=== PATIENT | female | born 1965 | race Caucasian/White ===

== ENCOUNTER 2018-04-15 14:56 | Emergency (ER) | payer SELFPAY ==
[2018-04-15 15:37] VITALS: TEMP 102
[2018-04-15] MEDS ORDERED: SODIUM CHLORIDE 0.9% (FLUSH) 10 ML SYG IV PRN (15:37)
[2018-04-15] MEDS ORDERED: KETOROLAC TROMETHAMINE INJ 30 MG/ML VIAL IV ONE (15:37)
[2018-04-15] MEDS ORDERED: SODIUM CHLORIDE 0.9% 1000ML 1,000 ML IVS PRN (15:37)
[2018-04-15] MEDS ORDERED: MORPHINE SULFATE INJ 10 MG/ML VIAL IV ONE (15:37)
[2018-04-15] MEDS ORDERED: ONDANSETRON INJ 4 MG/2 ML VIAL IV ONE (15:37)
[2018-04-15] MEDS ORDERED: PHENAZOPYRIDINE HCL 200 MG TAB PO ONE (15:38)
--- NOTE | 2018-04-15 15:41 | ED.PDOC ---
History of Present Illness - General Chief Complaint: Abdominal Pain Stated Complaint: abdominal pain; fever Time Seen by Provider: 04/15/18 15:37 Source: patient Exam Limitations: no limitations - History of Present Illness Initial Comments: PT REPORTS SYMPTOMS OF DYSURIA AND FREQUENCY 3 DAYS AGO. PT REPORTS TRYING TO SELF TREAT WITH AZO AT HOME BUT STATES THAT SYMPOTMS HAS WORSENED TO NOW INCLUDE FEVER, CHILLS, NAUSEA, AND RIGHT FLANK PAIN. Timing/Duration: getting worse Quality: aching Onset Location: RLQ, right flank Radiation: RLQ Associated Symptoms: dysuria, fever/chills, nausea/vomiting, urinary frequency Allergies/Adverse Reactions: Allergies Penicillins Allergy (Verified 07/01/16 08:51) Other Swells tongue Home Medications: Ambulatory Orders glyBURIDE [Diabeta] 5 mg PO DAILY 07/25/15 metFORMIN HCL [Glucophage] 1,000 mg PO DAILY 07/25/15 Fluticasone/Salmeterol 250/50 [Advair Diskus] 1 puff INH DAILY 07/01/16 Gabapentin [Neurontin] 300 mg PO TID #30 cap 07/01/16 Insulin Aspart [Novolog Flexpen] 0 unit SC QID PRN 07/01/16 Insulin Detemir [Levemir] 50 unit SUBCU BEDTIME 07/01/16 Lisinopril 5 mg PO DAILY 07/01/16 Acetaminophen W/ Codeine [Tylenol W/ CODEINE #3] 1 ea PO Q4HR PRN #24 04/15/18 Cefuroxime Axetil [Ceftin] 500 mg PO Q12H #20 tablet 04/15/18 Ibuprofen 800 mg PO Q8HR PRN #30 tab 04/15/18 Promethazine Tab [Phenergan Tablet] 25 mg PO Q6H PRN #15 tab 04/15/18 Review of Systems - Review of Systems Constitutional: States: chills, fever EENTM: Denies: nose congestion, throat pain Respiratory: Denies: cough, short of breath Cardiology: Denies: chest pain, palpitations, syncope Gastrointestinal/Abdominal: States: constipation, nausea. Denies: diarrhea, vomiting Genitourinary: States: dysuria, frequency, hematuria Musculoskeletal: Denies: joint pain, joint swelling Skin: Denies: dryness, lesions Neurological: Denies: headache, numbness, paresthesia Endocrine: States: no symptoms reported Hematologic/Lymphatic: States: no symptoms reported Past Medical History (General) - Patient Medical History Hx Stroke: No Hx Asthma: Yes Hx of COPD: Yes Hx Cardiac Disorders: No Hx Congestive Heart Failure: No Hx Hypertension: Yes Hx Diabetes: Yes - IDDM Surgical History: appendectomy - Vaccination History Hx Tetanus, Diphtheria Vaccination: Yes Hx Influenza Vaccination: No Hx Pneumococcal Vaccination: No - Social History Hx Tobacco Use: Yes - Quit 2006 - Female History Patient : No Family Medical History - Family History Mother Family History: No Known Living Status: Still Living Hx Family Diabetes: Yes Physical Exam - Physical Exam General Appearance: Alert, Obvious distress, Obese, Well Hydrated Eyes, Ears, Nose, Throat Exam: normal ENT inspection Cardiovascular/Respiratory: regular rate, rhythm, no M/R/G, normal breath sounds , no respiratory distress Gastrointestinal/Abdominal: soft, tenderness - RLQ Back Exam: CVA tenderness (R) Extremity: non-tender, normal inspection, no pedal edema Neurologic: alert, normal mood/affect, oriented x 3 Skin Exam: normal color, warm/dry Progress - Progress Progress: 04/15/18 17:39 PT REPORTS SIGNIFICANT IMPROVEMENT IN SYMPTOMS ON RE-EVALUATION. LABS AND CT FINDINGS DISCUSSED. - Results/Orders Results/Orders: Laboratory Tests 04/15/18 04/15/18 04/15/18 15:42 15:42 Unknown WBC 9.4 RBC 4.68 Hgb 14.0 Hct 41.1 MCV 87.8 MCH 29.9 MCHC 34.0 RDW 13.4 Plt Count 192 MPV 8.9 Absolute Neuts (auto) 6.50 Absolute Lymphs (auto) 1.40 Absolute Monos (auto) 1.30 H Absolute Eos (auto) 0.20 Absolute Basos (auto) 0.10 Neutrophils % 68.8 Lymphocytes % 14.7 L Monocytes % 13.7 H Eosinophils % 2.2 Basophils % 0.6 Sodium 135 Potassium 3.9 Chloride 98 L Carbon Dioxide 30 Anion Gap 10.9 L BUN 8 Creatinine 0.56 L BUN/Creatinine Ratio 14.3 Random Glucose 349 H Serum Osmolality 282.3 Calcium 9.2 Urine Color Yellow Urine Appearance Sl cloudy Urine pH 6.5 Ur Specific [place] 1.010 Urine Protein Negative Urine Glucose (UA) 500 H Urine Ketones Negative Urine Blood Large H Urine Nitrite Negative Urine Bilirubin Negative Urine Urobilinogen 0.2 Ur Leukocyte Esterase Small H Urine RBC >50 H Urine WBC 5-10 H Ur Epithelial Cells 1-3 Amorphous Sediment 1+ Urine Bacteria 1+ Departure - Departure Clinical Impression: Pyelonephritis, Nausea, Fever Time of Disposition: 17:42 Disposition: Discharge to Home or Self Care Condition: Good Departure Forms: ED Discharge - Pt. Copy, Patient Portal Self Enrollment Instructions: DI for Kidney Infection Referrals: [facility] [Provider Group] - 1-5 Days Prescriptions: Acetaminophen W/ Codeine [Tylenol W/ CODEINE #3] 1 ea PO Q4HR PRN #24 PRN Reason: Pain Ibuprofen 800 mg PO Q8HR PRN #30 tab PRN Reason: Pain Cefuroxime Axetil [Ceftin] 500 mg PO Q12H #20 tablet Promethazine Tab [Phenergan Tablet] 25 mg PO Q6H PRN #15 tab PRN Reason: Nausea/Vomiting Home Medications: Ambulatory Orders glyBURIDE [Diabeta] 5 mg PO DAILY 07/25/15 metFORMIN HCL [Glucophage] 1,000 mg PO DAILY 07/25/15 Fluticasone/Salmeterol 250/50 [Advair Diskus] 1 puff INH DAILY 07/01/16 Gabapentin [Neurontin] 300 mg PO TID #30 cap 07/01/16 Insulin Aspart [Novolog Flexpen] 0 unit SC QID PRN 07/01/16 Insulin Detemir [Levemir] 50 unit SUBCU BEDTIME 07/01/16 Lisinopril 5 mg PO DAILY 07/01/16 Acetaminophen W/ Codeine [Tylenol W/ CODEINE #3] 1 ea PO Q4HR PRN #24 04/15/18 Cefuroxime Axetil [Ceftin] 500 mg PO Q12H #20 tablet 04/15/18 Ibuprofen 800 mg PO Q8HR PRN #30 tab 04/15/18 Promethazine Tab [Phenergan Tablet] 25 mg PO Q6H PRN #15 tab 04/15/18
[2018-04-15] MEDS ORDERED: cefTRIAXone SODIUM 1 GM in SODIUM CHL 0.9% 50ML MIN-BAG+ 50 ML IVPB ONE (16:17)
[2018-04-15] MEDS ORDERED: SODIUM CHL 0.9% 50ML MIN-BAG+ 50 ML IVPB ONE (16:22)
[2018-04-15] MEDS ORDERED: cefTRIAXone SODIUM 1 GM VIAL ONE (16:22)
[2018-04-15] MEDS ORDERED: SODIUM CHLORIDE 0.9% 1000ML 1,000 ML IVS ONE (16:27)
--- NOTE | 2018-04-15 16:50 | CT ---
EXAM DESCRIPTION: Abdoment/Pelvis w/o Contrast CLINICAL HISTORY: 52 years Female, RIGHT FLANK PAIN, HEMATURIA COMPARISON: None available. TECHNIQUE: Contiguous 3 mm axial images were obtained from the lung bases to the level of the proximal femora without the administration of intravenous or oral contrast. Sagittal and coronal reconstructions were reviewed. FINDINGS: Limited evaluation of the solid organs due to the lack of intravenous contrast. THORAX: The imaged lower thorax demonstrates no gross abnormality. LIVER: The liver demonstrates normal size and density with no intrahepatic biliary ductal dilatation. GALLBLADDER: Grossly unremarkable. PANCREAS: Appears normal with no cystic or solid lesions. SPLEEN: Normal ADRENAL GLANDS: Normal with no nodules or masses. KIDNEYS: Punctate 3.3 mm calculus is noted in the upper pole of the right kidney. No hydronephrosis or perinephric fluid collections bilaterally. The visualized ureters appear grossly unremarkable. STOMACH: The stomach is well-distended with no gross abnormality. SMALL BOWEL: The small bowel loops demonstrate variable degrees of distention with no abnormal dilatation or other signs to suggest bowel obstruction. LARGE BOWEL: Multiple diverticula are noted throughout the colon. No evidence of acute appendicitis. The appendix is not definitely seen, however no secondary signs to suggest acute appendicitis. No evidence of free intraperitoneal air or fluid. RETROPERITONEUM: The abdominal aorta is nonaneurysmal with no significant atherosclerosis. The inferior vena cava is normal in size and caliber. No abnormally enlarged retroperitoneal lymph nodes are identified. URINARY BLADDER:The urinary bladder is well-distended with no gross abnormality. The uterus and adnexa appear normal. ADDITIONAL FINDINGS: Fat-containing bilateral inguinal hernias are noted. BONES: Mild degenerative changes are identified in the visualized bones.No evidence of osteophytic or osteoblastic lesions. IMPRESSION: Punctate nonobstructive calculus is noted in the right kidney. No hydronephrosis or obstructive calculus is identified bilaterally. Fat-containing bilateral inguinal hernias are noted. Colonic diverticulosis. This exam was performed according to our departmental dose-optimization program, which includes automated exposure control, adjustment of the mA and/or kV according to patient size and/or use of iterative reconstruction technique. Electronically signed by: Blanka Wall MD 04/15/2018 4:48 PM CDT
[2018-04-15 18:59] VITALS: BP 112/68; O2SAT 94
== END 2018-04-15 16:10 | disposition home or self-care (01) ==
LOC: ER 14:56
DX: N12 Tubulo-interstitial nephritis, not specified as acute or chronic (principal); R50.81 Fever presenting with conditions classified elsewhere; R11.2 Nausea with vomiting, unspecified; J44.9 Chronic obstructive pulmonary disease, unspecified; J45.909 Unspecified asthma, uncomplicated; E11.9 Type 2 diabetes mellitus without complications; I10 Essential (primary) hypertension; Z87.891 Personal history of nicotine dependence; Z79.4 Long term (current) use of insulin
CPT/HCPCS: 36415; 74176; 80048; 81001; 85025; 87086; J0696; J1885; J2270; J2405; J7030; J7050

== ENCOUNTER 2018-05-08 03:38 | Emergency (ER) | payer SELFPAY ==
[2018-05-08 03:55] VITALS: TEMP 97.6
[2018-05-08] MEDS ORDERED: LIDOCAINE 2 % GEL 5 ML TUBE TOP ONE (04:01)
--- NOTE | 2018-05-08 04:19 | ED.PDOC ---
History of Present Illness - General Chief Complaint: Dental/Mouth Stated Complaint: toothache Time Seen by Provider: 05/08/18 03:57 Source: patient Exam Limitations: no limitations - History of Present Illness Initial Comments: Shaye Morales 53 y/o female stated that for the last 2 days had been having toothache right lower teeth.Unable to get dental appointment today.No fever ,no chills,no drooling ,painful to chew right mandibular area. Timing/Duration: other - see hpi Severity: moderate EENT Location: dental Prearrival Treatment: no prearrival treatment Presenting Symptoms: Dental pain Improving Factors: rest - from chewing Worsening Factors: eating Associated Symptoms: denies symptoms Allergies/Adverse Reactions: Allergies Penicillins Allergy (Verified 07/01/16 08:51) Other Swells tongue Home Medications: Ambulatory Orders glyBURIDE [Diabeta] 5 mg PO DAILY 07/25/15 metFORMIN HCL [Glucophage] 1,000 mg PO DAILY 07/25/15 Fluticasone/Salmeterol 250/50 [Advair Diskus] 1 puff INH DAILY 07/01/16 Gabapentin [Neurontin] 300 mg PO TID #30 cap 07/01/16 Insulin Aspart [Novolog Flexpen] 0 unit SC QID PRN 07/01/16 Insulin Detemir [Levemir] 50 unit SUBCU BEDTIME 07/01/16 Lisinopril 5 mg PO DAILY 07/01/16 Acetaminophen W/ Codeine [Tylenol W/ CODEINE #3] 1 ea PO Q4HR PRN #24 04/15/18 Cefuroxime Axetil [Ceftin] 500 mg PO Q12H #20 tablet 04/15/18 Ibuprofen 800 mg PO Q8HR PRN #30 tab 04/15/18 Promethazine Tab [Phenergan Tablet] 25 mg PO Q6H PRN #15 tab 04/15/18 Clindamycin HCl 150 mg PO TID #30 cap 05/08/18 Tramadol HCl 50 mg PO TID PRN #14 tab 05/08/18 Review of Systems - Review of Systems Constitutional: States: no symptoms reported EENTM: States: see HPI Respiratory: States: no symptoms reported Cardiology: States: no symptoms reported All other Systems: Reviewed and Negative, No Change from Baseline Past Medical History (General) - Patient Medical History Hx Stroke: No Hx Asthma: Yes Hx of COPD: Yes Hx Cardiac Disorders: Yes - high cholesterol Hx Congestive Heart Failure: No Hx Hypertension: Yes Hx Diabetes: Yes - IDDM Surgical History: appendectomy, other - btl - Vaccination History Hx Tetanus, Diphtheria Vaccination: No Hx Influenza Vaccination: Yes Hx Pneumococcal Vaccination: No - Social History Hx Tobacco Use: Yes - Quit 2006 Hx Alcohol Use: Yes - occ - Female History Patient : No Family Medical History - Family History Mother Family History: No Known Living Status: Still Living Hx Family Diabetes: Yes Physical Exam - Physical Exam General Appearance: Alert, No apparent distress Eye Exam: bilateral normal Ear Exam: bilateral ear: auricle normal, canal normal, TM normal Nasal Exam: normal inspection Throat Exam: pharynx normal, dental tenderness - right lower incisor,multiple decayed teeth Neck: non-tender, normal inspection, trachea midline Cardiovascular/Respiratory: regular rate, rhythm, normal peripheral pulses, normal breath sounds Abdominal Exam: non-tender Neurologic: alert, oriented x 3 Skin Exam: normal color, warm/dry Progress - Progress Progress: 05/08/18 04:22 Vital Signs - 8 hr 05/08/18 03:50 Temperature 97.6 F Pulse Rate [ 70 left] Respiratory 18 Rate Blood Pressure 169/99 [left] O2 Sat by Pulse 94 L Oximetry 05/08/18 04:44 Right infraalveolar nerve block done after getting informed consent using Lidocaine 2% w/epinephrine giving 2.5 cc along right alveolar ridge aspirated before injection tolerated procedure well Departure - Departure Clinical Impression: Dental caries extending into pulp, Dental neglect Time of Disposition: 04:53 Disposition: Discharge to Home or Self Care Condition: Fair Departure Forms: ED Discharge - Pt. Copy, Patient Portal Self Enrollment Instructions: DI for Dental Pain Diet: other - SOFT DIET ONLY UNTIL BETTER Prescriptions: Clindamycin HCl 150 mg PO TID #30 cap Tramadol HCl 50 mg PO TID PRN #14 tab PRN Reason: Pain Home Medications: Ambulatory Orders glyBURIDE [Diabeta] 5 mg PO DAILY 07/25/15 metFORMIN HCL [Glucophage] 1,000 mg PO DAILY 07/25/15 Fluticasone/Salmeterol 250/50 [Advair Diskus] 1 puff INH DAILY 07/01/16 Gabapentin [Neurontin] 300 mg PO TID #30 cap 07/01/16 Insulin Aspart [Novolog Flexpen] 0 unit SC QID PRN 07/01/16 Insulin Detemir [Levemir] 50 unit SUBCU BEDTIME 07/01/16 Lisinopril 5 mg PO DAILY 07/01/16 Acetaminophen W/ Codeine [Tylenol W/ CODEINE #3] 1 ea PO Q4HR PRN #24 04/15/18 Cefuroxime Axetil [Ceftin] 500 mg PO Q12H #20 tablet 04/15/18 Ibuprofen 800 mg PO Q8HR PRN #30 tab 04/15/18 Promethazine Tab [Phenergan Tablet] 25 mg PO Q6H PRN #15 tab 04/15/18 Clindamycin HCl 150 mg PO TID #30 cap 05/08/18 Tramadol HCl 50 mg PO TID PRN #14 tab 05/08/18 Additional Instructions: NEED TO MAKE APPOINTMENT WITH DENTIST OF CHOICE CASEY ;or call [facility] [place] [address] [phone];[facility] [address] [place] [address] [phone]
[2018-05-08] MEDS ORDERED: LIDOCAINE 1% 10 ML VIAL INJ ONE (04:27)
[2018-05-08] MEDS ORDERED: LIDOCAINE 2% W/ EPINEPHRINE 20 ML VIAL INJ ONE (04:27)
[2018-05-08] MEDS: KETOROLAC TROMETHAMINE INJ 30 MG/ML VIAL IM ONE (04:31)
[2018-05-08] MEDS: LIDOCAINE 2% 50 ML VIAL INJ ONE (04:32)
[2018-05-08] MEDS: LIDOCAINE 2 % GEL 5 ML TUBE TOP ONE (04:33)
[2018-05-08] MEDS: HYDROCOD/APAP 7.5/325 (ER DISP) #3 TAB PO ONE (04:51)
[2018-05-08] MEDS: CLINDAMYCIN HCL CAP 150 MG CAP PO ONE (04:52)
[2018-05-08 05:08] VITALS: BP 153/93; O2SAT 95
== END 2018-05-08 05:08 | disposition home or self-care (01) ==
LOC: ER 03:38
DX: K02.63 Dental caries on smooth surface penetrating into pulp (principal); J44.9 Chronic obstructive pulmonary disease, unspecified; E78.00 Pure hypercholesterolemia, unspecified; I10 Essential (primary) hypertension; E11.9 Type 2 diabetes mellitus without complications; Z87.891 Personal history of nicotine dependence; Z79.4 Long term (current) use of insulin; Z79.84 Long term (current) use of oral hypoglycemic drugs; Z79.899 Other long term (current) drug therapy

== ENCOUNTER → 2019-09-22 | Outpatient (CLI) | payer OTHER | LOC: YCFC.O 11:53 | PROVIDERS: ATTEND Nurse Practitioner | DX: M13.0 Polyarthritis, unspecified (principal) ==

== ENCOUNTER → 2020-08-27 | Outpatient (CLI) | payer OTHER | LOC: YCFC.O 10:29 | PROVIDERS: ATTEND Nurse Practitioner Family | DX: Z03.818 Encounter for observation for suspected exposure to other biological agents ruled out (principal); Z20.828 Contact with and (suspected) exposure to other viral communicable diseases; Z11.59 Encounter for screening for other viral diseases ==